=== PATIENT | male | born 1935 | race Caucasian/White ===

== ENCOUNTER 2016-05-07 22:51 | Inpatient (IN) | payer OTHER ==
[~2016-05-07] VITALS: Ht 177.8 cm; Wt 92.8 kg
[~2016-05-07 22:51] MED LIST: AMOX TR-K CLV1 EAC4 PO; ANALGESIC BALM28 GM TP; ATIVAN1 MG PO; ATORVASTATIN CA10 MG PO; AUGMENTIN875 MG PO; BLOOD PRESSURE MED; CELEXA20 MG PO; CHEST CONGESTI400 MG PO; CHOLESTEROL MED; CLONIDINE HCL0.1 MG PO; COLACE100 MG PO; DULCOLAX10 MG PR; DUONEB 2.5-0.5 M3 ML AEROSOL; ENDOCET 5-3251 EACH PO; FEOSOL325 MG PO; FLONASE16 G1 BOTH NARES; FLORASTOR250 MG PO; FOSAMAX70 MG PO; FUROSEMIDE40 MG PO; Feosol PO; Flonase BOTH NARES; Fosamax PO; HYDROCODON-ACE1 EAC7 PO; Humibid LA,Mucinex PO; LASIX20 MG PO; LOPRESSOR25 MG PO; LOSARTAN POTASS25 MG PO; LOSARTAN POTASS50 MG PO; LOVENOX40 MG/0.4 SC; Lopressor PO; METOPROLOL SUCC25 MG PO; MILK OF MAGN PO; MIRALAX17 GM PO; MUCINEX600 MG PO; MUCUS RELIEF400 MG PO; NITROSTAT0.4 MG SL; PERCOCET 5/31 TABLET PO; PRESERVISIO1 CAPSULE PO; PRESERVISION S1 EACH PO; PRILOSEC20 MG PO; PRILOSEC40 MG PO; SIMVASTATIN20 MG PO; SIMVASTATIN5 MG PO; TERBINAFINE HC250 MG PO; TOPROL XL6.25 MG PO; TRAMADOL HCL50 MG PO; TYLENOL ARTHRI650 MG PO; Ultram PO; VITAMIN D32000 UNI1 PO; ZOCOR20 MG PO; [UNRECOGNIZED DRUG - OTHER] TP
[2016-05-08] VITALS (10 sets, daily range): BP systolic 119–144; BP diastolic 55–64
[2016-05-08 00:15] LABS: MCV 83.8 FL (86-99); MEAN PLAT.VOLUME 9.3 uM^3 (9.0-12.4); PLATELET COUNT 174 K/uL (156-360); RBC DIS.WIDTH-CV 17.1 % (11.8-14.6); RBC DIS.WIDTH-SD 50.2 % (39-53); RED BLOOD COUNT 3.46 M/uL (4.00-5.50); WHITE BLOOD COUNT 2.9 K/uL (4.1-10.2)
[2016-05-08 00:21] LABS: IMMATURE GRANULOCYTE (%) 0.3 % (0.0-0.7); IMMATURE GRANULOCYTE COUNT 0.1 K/uL; LYMPHOCYTE COUNT 0.4 K/uL (1.0-2.8); MONOCYTE (%) 11.4 % (3-12); MONOCYTE COUNT 0.3 K/uL (0-0.8); NEUTROPHIL (%) 74.5 % (45-76); NEUTROPHIL COUNT 2.2 K/uL (1.8-6.4)
[2016-05-08 00:26] LABS: CHLORIDE 103 mEq/L (99-109); SODIUM 138 mEq/L (136-147)
[2016-05-08 00:28] LABS: GLUCOSE 131 mg/dL (70-99)
[2016-05-08 00:29] LABS: ANION GAP 9 MEQ/L (2-14); INTER. NORMALIZED RATIO 1.1; PROTHROMBIN TIME 10.8 (9.2-11.2); PTT 26.1 (25-32)
[2016-05-08 00:30] LABS: TOTAL BILIRUBIN 0.4 mg/dL (0.0-1.0)
[2016-05-08 00:31] LABS: ALKALINE PHOSPHATASE 80 IU/L (3-129)
[2016-05-08 00:32] LABS: GFR ESTIMATE (CALCULATED) > 59 mL/min/
[2016-05-08 00:33] LABS: UREA NITROGEN (BUN) 21 mg/dL (9-23)
[2016-05-08 00:35] LABS: LIPASE 37 U/L (1.0-51.0)
[2016-05-08 00:36] LABS: TROP-I INTERPRETATION NEGATIVE; TROPONIN-I 0.01 ng/mL (0.0-0.30)
[2016-05-08] MEDS ORDERED: ASPERCREME1 EACH TP (01:32)
[2016-05-08] MEDS ORDERED: POTASSIUM CHLO10 ME3 PO (01:37)
[2016-05-08] MEDS ORDERED: TRAZODONE HCL50 MG PO (01:39)
[2016-05-08] MEDS ORDERED: VITAMIN D2000 UNIT PO (01:40)
[2016-05-08] MEDS ORDERED: TOPROL XL25 MG PO (01:41)
[2016-05-08] MEDS ORDERED: DULCOLAX10 MG PR (01:43)
[2016-05-08] MEDS ORDERED: FLEET MINERAL133 ML PR (01:46)
[2016-05-08 03:09] LABS: ADD MIUA? YES; BLOOD LARGE; COLOR RED ((YELLOW))
[2016-05-08 03:13] LABS: RED BLOOD CELLS TNTC /HPF (0-5); UCUL ADDED? YES
[2016-05-08 07:01] LABS: MCH 26.3 PG (29.0-34.0); MCHC 31.8 G/DL (30.0-36.0); MCV 82.8 FL (86-99); MEAN PLAT.VOLUME 9.2 uM^3 (9.0-12.4); PLATELET COUNT 155 K/uL (156-360); RBC DIS.WIDTH-CV 17.3 % (11.8-14.6); RBC DIS.WIDTH-SD 51.9 % (39-53); RED BLOOD COUNT 3.38 M/uL (4.00-5.50)
[2016-05-08 07:02] LABS: WHITE BLOOD COUNT 4.7 K/uL (4.1-10.2)
[2016-05-08 07:17] LABS: ANION GAP 6 MEQ/L (2-14); CHLORIDE 103 MEQ/L (99-109); GFR ESTIMATE (CALCULATED) > 59 mL/min/; GLUCOSE 139 mg/dL (70-99); POTASSIUM 4.4 MEQ/L (3.7-5.4); SAMPLE HEMOLYSIS CHECK 0; SAMPLE ICTERIC CHECK 0; SAMPLE LIPEMIA CHECK 0; SODIUM 137 MEQ/L (136-147); UREA NITROGEN (BUN) 21 mg/dL (9-23)
[2016-05-08 12:45] LABS: HEMATOCRIT 25.4 % (38.0-50.0); MCH 26.8 PG (29.0-34.0); MCHC 32.3 G/DL (30.0-36.0); MEAN PLAT.VOLUME 9.1 uM^3 (9.0-12.4); PLATELET COUNT 146 K/uL (156-360); RBC DIS.WIDTH-CV 17.3 % (11.8-14.6); RBC DIS.WIDTH-SD 51.9 % (39-53); RED BLOOD COUNT 3.06 M/uL (4.00-5.50); WHITE BLOOD COUNT 3.7 K/uL (4.1-10.2)
[2016-05-08 18:56] LABS: HEMATOCRIT 23.7 % (38.0-50.0); MCH 26.3 PG (29.0-34.0); MCHC 31.6 G/DL (30.0-36.0); MCV 83.2 FL (86-99); MEAN PLAT.VOLUME 9.4 uM^3 (9.0-12.4); PLATELET COUNT 155 K/uL (156-360); RBC DIS.WIDTH-CV 17.3 % (11.8-14.6); RBC DIS.WIDTH-SD 52.8 % (39-53); RED BLOOD COUNT 2.85 M/uL (4.00-5.50); WHITE BLOOD COUNT 3.6 K/uL (4.1-10.2)
[2016-05-08 19:22] LABS: EOSINOPHIL (%) 1.7 % (0-5); EOSINOPHIL COUNT 0.1 K/uL (0-0.3); LYMPHOCYTE COUNT 0.3 K/uL (1.0-2.8); MONOCYTE (%) 14.7 % (3-12); MONOCYTE COUNT 0.5 K/uL (0-0.8); NEUTROPHIL (%) 75.3 % (45-76); NEUTROPHIL COUNT 2.7 K/uL (1.8-6.4)
[2016-05-08 22:37] LABS: HEMATOCRIT 24.7 % (38.0-50.0); MCH 26.8 PG (29.0-34.0); MCHC 32.4 G/DL (30.0-36.0); MCV 82.6 FL (86-99); MEAN PLAT.VOLUME 8.6 uM^3 (9.0-12.4); PLATELET COUNT 124 K/uL (156-360); RBC DIS.WIDTH-CV 16.7 % (11.8-14.6); RBC DIS.WIDTH-SD 50.2 % (39-53); RED BLOOD COUNT 2.99 M/uL (4.00-5.50)
[2016-05-08 22:42] LABS: EOSINOPHIL (%) 2.3 % (0-5); EOSINOPHIL COUNT 0.1 K/uL (0-0.3); LYMPHOCYTE COUNT 0.4 K/uL (1.0-2.8); MONOCYTE (%) 11.3 % (3-12); MONOCYTE COUNT 0.3 K/uL (0-0.8); NEUTROPHIL (%) 73.4 % (45-76); NEUTROPHIL COUNT 2.2 K/uL (1.8-6.4)
[2016-05-09 00:25] VITALS: BP 127/65
[2016-05-09 05:15] LABS: HEMATOCRIT 24.5 % (38.0-50.0); MCH 26.8 PG (29.0-34.0); MCHC 32.2 G/DL (30.0-36.0); MCV 83.1 FL (86-99); MEAN PLAT.VOLUME 9.4 uM^3 (9.0-12.4); PLATELET COUNT 131 K/uL (156-360); RBC DIS.WIDTH-SD 51.3 % (39-53); RED BLOOD COUNT 2.95 M/uL (4.00-5.50); WHITE BLOOD COUNT 3.1 K/uL (4.1-10.2)
[2016-05-09 08:21] VITALS: BP 122/92
[2016-05-09 12:08] VITALS: BP 139/63
[2016-05-09 14:59] VITALS: BP 150/67
[2016-05-09 15:25] VITALS: BP 160/70
[2016-05-09 17:30] VITALS: BP 182/78
[2016-05-09 18:33] LABS: HEMATOCRIT 25.4 % (38.0-50.0); MCHC 32.3 G/DL (30.0-36.0); MCV 83.6 FL (86-99); MEAN PLAT.VOLUME 9.1 uM^3 (9.0-12.4); PLATELET COUNT 111 K/uL (156-360); RBC DIS.WIDTH-CV 16.6 % (11.8-14.6); RBC DIS.WIDTH-SD 49.9 % (39-53); RED BLOOD COUNT 3.04 M/uL (4.00-5.50); WHITE BLOOD COUNT 2.1 K/uL (4.1-10.2)
[2016-05-10] VITALS (9 sets, daily range): BP systolic 139–187; BP diastolic 50–79
[2016-05-10 06:14] LABS: HEMATOCRIT 27.7 % (38.0-50.0); MCH 27.4 PG (29.0-34.0); MCHC 32.9 G/DL (30.0-36.0); MCV 83.4 FL (86-99); MEAN PLAT.VOLUME 9.7 uM^3 (9.0-12.4); PLATELET COUNT 113 K/uL (156-360); RBC DIS.WIDTH-CV 16.2 % (11.8-14.6); RBC DIS.WIDTH-SD 49.4 % (39-53); RED BLOOD COUNT 3.32 M/uL (4.00-5.50); WHITE BLOOD COUNT 2.3 K/uL (4.1-10.2)
[2016-05-10 06:16] LABS: HEMATOCRIT 27.9 % (38.0-50.0); MCH 27.1 PG (29.0-34.0); MCHC 32.3 G/DL (30.0-36.0); MEAN PLAT.VOLUME 9.5 uM^3 (9.0-12.4); PLATELET COUNT 116 K/uL (156-360); RBC DIS.WIDTH-CV 16.3 % (11.8-14.6); RBC DIS.WIDTH-SD 49.3 % (39-53); RED BLOOD COUNT 3.32 M/uL (4.00-5.50); WHITE BLOOD COUNT 2.3 K/uL (4.1-10.2)
[2016-05-10 07:29] LABS: ANION GAP 8 MEQ/L (2-14); CHLORIDE 109 MEQ/L (99-109); GFR ESTIMATE (CALCULATED) > 59 mL/min/; POTASSIUM 4.2 MEQ/L (3.7-5.4); SAMPLE HEMOLYSIS CHECK 0; SAMPLE ICTERIC CHECK 0; SAMPLE LIPEMIA CHECK 0; SODIUM 142 MEQ/L (136-147); UREA NITROGEN (BUN) 14 mg/dL (9-23)
[2016-05-10 07:30] LABS: GLUCOSE 101 mg/dL (70-99)
[2016-05-10 11:17] LABS: METH RESISTANT S AUREUS PCR POSITIVE (NEGATIVE)
[2016-05-10 11:21] LABS: PROBE CHECK PASS
[2016-05-10 20:00] LABS: HEMATOCRIT 25.3 % (38.0-50.0); MCH 27.3 PG (29.0-34.0); MCHC 32.4 G/DL (30.0-36.0); MCV 84.3 FL (86-99); MEAN PLAT.VOLUME 9.6 uM^3 (9.0-12.4); PLATELET COUNT 122 K/uL (156-360); RBC DIS.WIDTH-CV 16.6 % (11.8-14.6); RBC DIS.WIDTH-SD 50.7 % (39-53)
[2016-05-10 20:01] LABS: WHITE BLOOD COUNT 1.6 K/uL (4.1-10.2)
[2016-05-11 00:26] VITALS: BP 116/78
[2016-05-11 00:30] VITALS: BP 142/76; BP 242/76
[2016-05-11 05:05] LABS: MCH 26.9 PG (29.0-34.0); MCHC 32.2 G/DL (30.0-36.0); MCV 83.9 FL (86-99); MEAN PLAT.VOLUME 8.9 uM^3 (9.0-12.4); PLATELET COUNT 147 K/uL (156-360); RBC DIS.WIDTH-CV 16.2 % (11.8-14.6); RBC DIS.WIDTH-SD 47.6 % (39-53); RED BLOOD COUNT 3.23 M/uL (4.00-5.50)
[2016-05-11 05:06] LABS: WHITE BLOOD COUNT 1.6 K/uL (4.1-10.2)
[2016-05-11 07:59] VITALS: BP 142/68
[2016-05-11 16:09] VITALS: BP 153/68
[2016-05-11 19:33] LABS: HEMATOCRIT 26.5 % (38.0-50.0); MCH 27.4 PG (29.0-34.0); MCHC 32.5 G/DL (30.0-36.0); MCV 84.4 FL (86-99); MEAN PLAT.VOLUME 8.7 uM^3 (9.0-12.4); PLATELET COUNT 112 K/uL (156-360); RBC DIS.WIDTH-CV 16.5 % (11.8-14.6); RED BLOOD COUNT 3.14 M/uL (4.00-5.50); WHITE BLOOD COUNT 1.5 K/uL (4.1-10.2)
[2016-05-12 00:21] VITALS: BP 180/70
[2016-05-12 06:28] VITALS: BP 199/86
[2016-05-12 06:33] LABS: HEMATOCRIT 27.7 % (38.0-50.0); MCH 27.2 PG (29.0-34.0); MCHC 32.5 G/DL (30.0-36.0); MCV 83.7 FL (86-99); MEAN PLAT.VOLUME 9.4 uM^3 (9.0-12.4); PLATELET COUNT 124 K/uL (156-360); RBC DIS.WIDTH-CV 16.6 % (11.8-14.6); RBC DIS.WIDTH-SD 50.5 % (39-53); RED BLOOD COUNT 3.31 M/uL (4.00-5.50)
[2016-05-12 06:35] LABS: WHITE BLOOD COUNT 1.6 K/uL (4.1-10.2)
[2016-05-12 07:13] LABS: EOSINOPHIL (%) 1.9 % (0-5); LYMPHOCYTE COUNT 0.2 K/uL (1.0-2.8); MONOCYTE (%) 14.6 % (3-12); MONOCYTE COUNT 0.2 K/uL (0-0.8); NEUTROPHIL (%) 68.2 % (45-76); NEUTROPHIL COUNT 1.1 K/uL (1.8-6.4); PLAT.SUFFICIENCY DECREASED; USER ID SDF
[2016-05-12 07:46] VITALS: BP 198/70
[2016-05-12 16:48] VITALS: BP 172/64
[2016-05-12 19:18] LABS: HEMATOCRIT 29.3 % (38.0-50.0); MCH 27.4 PG (29.0-34.0); MCHC 32.8 G/DL (30.0-36.0); MCV 83.5 FL (86-99); MEAN PLAT.VOLUME 8.8 uM^3 (9.0-12.4); PLATELET COUNT 125 K/uL (156-360); RBC DIS.WIDTH-CV 16.6 % (11.8-14.6); RBC DIS.WIDTH-SD 50.1 % (39-53); RED BLOOD COUNT 3.51 M/uL (4.00-5.50)
[2016-05-12 19:19] LABS: WHITE BLOOD COUNT 1.5 K/uL (4.1-10.2)
[2016-05-13 00:09] VITALS: BP 146/65
[2016-05-13 06:27] LABS: EOSINOPHIL (%) 0.6 % (0-5); HEMATOCRIT 28.7 % (38.0-50.0); IMMATURE GRANULOCYTE (%) 0.3 % (0.0-0.7); LYMPHOCYTE COUNT 0.2 K/uL (1.0-2.8); MCH 27.2 PG (29.0-34.0); MCHC 32.4 G/DL (30.0-36.0); MCV 83.9 FL (86-99); MEAN PLAT.VOLUME 9.1 uM^3 (9.0-12.4); MONOCYTE (%) 8.9 % (3-12); MONOCYTE COUNT 0.6 K/uL (0-0.8); NEUTROPHIL (%) 86.5 % (45-76); NEUTROPHIL COUNT 5.6 K/uL (1.8-6.4); PLATELET COUNT 120 K/uL (156-360); RBC DIS.WIDTH-CV 16.7 % (11.8-14.6); RBC DIS.WIDTH-SD 50.4 % (39-53); RED BLOOD COUNT 3.42 M/uL (4.00-5.50)
[2016-05-13 06:28] LABS: WHITE BLOOD COUNT 6.4 K/uL (4.1-10.2)
[2016-05-13 08:00] VITALS: BP 145/75
[2016-05-13 10:42] LABS: ANION GAP 8 MEQ/L (2-14); CHLORIDE 110 MEQ/L (99-109); GFR ESTIMATE (CALCULATED) > 59 mL/min/; GLUCOSE 93 mg/dL (70-99); SAMPLE HEMOLYSIS CHECK 0; SAMPLE ICTERIC CHECK 0; SAMPLE LIPEMIA CHECK 0; SODIUM 143 MEQ/L (136-147); UREA NITROGEN (BUN) 6 mg/dL (9-23)
[2016-05-13 10:45] LABS: POTASSIUM 3.1 MEQ/L (3.7-5.4)
[2016-05-13 19:23] LABS: HEMATOCRIT 30.6 % (38.0-50.0); MCH 27.1 PG (29.0-34.0); MCHC 32.4 G/DL (30.0-36.0); MCV 83.8 FL (86-99); MEAN PLAT.VOLUME 9.1 uM^3 (9.0-12.4); PLATELET COUNT 135 K/uL (156-360); RBC DIS.WIDTH-CV 17.1 % (11.8-14.6); RBC DIS.WIDTH-SD 51.3 % (39-53); RED BLOOD COUNT 3.65 M/uL (4.00-5.50); WHITE BLOOD COUNT 7.5 K/uL (4.1-10.2)
[2016-05-13 23:50] VITALS: BP 150/78
[2016-05-14 06:24] LABS: HEMATOCRIT 32.1 % (38.0-50.0); MCH 26.8 PG (29.0-34.0); MCHC 31.8 G/DL (30.0-36.0); MCV 84.5 FL (86-99); PLATELET COUNT 135 K/uL (156-360); RBC DIS.WIDTH-CV 17.5 % (11.8-14.6); WHITE BLOOD COUNT 7.8 K/uL (4.1-10.2)
[2016-05-14 07:01] LABS: ANION GAP 7 MEQ/L (2-14); CHLORIDE 111 MEQ/L (99-109); GFR ESTIMATE (CALCULATED) > 59 mL/min/; GLUCOSE 103 mg/dL (70-99); POTASSIUM 3.6 MEQ/L (3.7-5.4); SAMPLE HEMOLYSIS CHECK 0; SAMPLE ICTERIC CHECK 0; SAMPLE LIPEMIA CHECK 0; SODIUM 144 MEQ/L (136-147); UREA NITROGEN (BUN) 5 mg/dL (9-23)
[2016-05-14 08:30] VITALS: BP 150/70
[2016-05-14 16:30] VITALS: BP 169/50
[2016-05-14 18:17] LABS: HEMATOCRIT 31.9 % (38.0-50.0); MCH 27.1 PG (29.0-34.0); MCHC 31.7 G/DL (30.0-36.0); MCV 85.5 FL (86-99); MEAN PLAT.VOLUME 9.2 uM^3 (9.0-12.4); PLATELET COUNT 141 K/uL (156-360); RBC DIS.WIDTH-CV 17.3 % (11.8-14.6); RBC DIS.WIDTH-SD 52.7 % (39-53); RED BLOOD COUNT 3.73 M/uL (4.00-5.50); WHITE BLOOD COUNT 6.8 K/uL (4.1-10.2)
[2016-05-15 00:02] VITALS: BP 176/78
[2016-05-15 07:37] VITALS: BP 194/83
[2016-05-15] MEDS ORDERED: METOPROLOL TART50 MG PO (08:19)
== END 2016-05-15 12:19 | DRG 377 ==
LOC: EME → EDBD 22:51 → EDOF 05-08 01:48 → 3EAST 05-08 01:48
PROVIDERS: Anesthesiology; Emergency Medicine; Internal Medicine; Specialist
PROC: 30233N1 Transfusion of Nonautologous Red Blood Cells into Peripheral Vein, Percutaneous Approach (ICD-10-PCS; principal; 2016-05-08)
PROC: 3E1K78Z Irrigation of Genitourinary Tract using Irrigating Substance, Via Natural or Artificial Opening (ICD-10-PCS; principal; 2016-05-08)
PROC: 0T9B70Z Drainage of Bladder with Drainage Device, Via Natural or Artificial Opening (ICD-10-PCS; principal; 2016-05-08)
PROC: 0DJ08ZZ Inspection of Upper Intestinal Tract, Via Natural or Artificial Opening Endoscopic (ICD-10-PCS; 2016-05-09)
PROC: 0DJD8ZZ Inspection of Lower Intestinal Tract, Via Natural or Artificial Opening Endoscopic (ICD-10-PCS; 2016-05-13)
PROC: 0DBL8ZX Excision of Transverse Colon, Via Natural or Artificial Opening Endoscopic, Diagnostic (ICD-10-PCS; 2016-05-13)
PROC: 0DBK8ZX Excision of Ascending Colon, Via Natural or Artificial Opening Endoscopic, Diagnostic (ICD-10-PCS; 2016-05-13)
PROC: 0DBM8ZX Excision of Descending Colon, Via Natural or Artificial Opening Endoscopic, Diagnostic (ICD-10-PCS; 2016-05-13)
DX: K62.5 Hemorrhage of anus and rectum (principal); N30.91 Cystitis, unspecified with hematuria; D61.811 Other drug-induced pancytopenia; T36.1X5A Adverse effect of cephalosporins and other beta-lactam antibiotics, initial encounter; D12.2 Benign neoplasm of ascending colon; D62 Acute posthemorrhagic anemia; N13.6 Pyonephrosis; B96.4 Proteus (mirabilis) (morganii) as the cause of diseases classified elsewhere; K29.60 Other gastritis without bleeding; K57.30 Diverticulosis of large intestine without perforation or abscess without bleeding; D12.4 Benign neoplasm of descending colon; D12.3 Benign neoplasm of transverse colon; K31.819 Angiodysplasia of stomach and duodenum without bleeding; K52.9 Noninfective gastroenteritis and colitis, unspecified; J90 Pleural effusion, not elsewhere classified; K62.89 Other specified diseases of anus and rectum; K64.2 Third degree hemorrhoids; I10 Essential (primary) hypertension; N40.1 Benign prostatic hyperplasia with lower urinary tract symptoms; R33.8 Other retention of urine; M80.00XA Age-related osteoporosis with current pathological fracture, unspecified site, initial encounter for fracture; W19.XXXA Unspecified fall, initial encounter; Y92.009 Unspecified place in unspecified non-institutional (private) residence as the place of occurrence of the external cause; F03.90 Unspecified dementia, unspecified severity, without behavioral disturbance, psychotic disturbance, mood disturbance, and anxiety; E78.5 Hyperlipidemia, unspecified; I25.10 Atherosclerotic heart disease of native coronary artery without angina pectoris; G89.29 Other chronic pain; M54.32 Sciatica, left side; K21.9 Gastro-esophageal reflux disease without esophagitis; J44.9 Chronic obstructive pulmonary disease, unspecified; G47.30 Sleep apnea, unspecified; K76.0 Fatty (change of) liver, not elsewhere classified; Z87.891 Personal history of nicotine dependence; I25.2 Old myocardial infarction; Z86.73 Personal history of transient ischemic attack (TIA), and cerebral infarction without residual deficits; J45.909 Unspecified asthma, uncomplicated; F41.9 Anxiety disorder, unspecified; I27.2 Other secondary pulmonary hypertension; D36.15 Benign neoplasm of peripheral nerves and autonomic nervous system of abdomen; E66.9 Obesity, unspecified; Z68.29 Body mass index [BMI] 29.0-29.9, adult; Z87.81 Personal history of (healed) traumatic fracture; Z88.1 Allergy status to other antibiotic agents
CPT/HCPCS: 71010; 74177; 74250; 80048; 80053; 81003; 82085 90; 82272; 82550; 83605; 83690; 84484; 85025; 85025 91; 85027; 85610; 85651; 85730; 86850; 86900; 86901; 86920; 87040; 87077; 87086; 87177; 87186; 87493; 87506; 87641; 88305; 93005; 94760; 94799; 99202; 99281; 99285; B4087; C9113; J0692; J0696; J1170; J1447; J2060; J2250; J2270; J2405; J3010; J7030; J7050; P9016; S0028

== ENCOUNTER 2016-08-19 11:43 | Inpatient (IN) | payer OTHER ==
[~2016-08-19] VITALS: Ht 182.9 cm; Wt 92.0 kg
[~2016-08-19 11:43] MED LIST changes: +ASPERCREME1 EACH TP; +FLEET MINERAL133 ML PR; +METOPROLOL TART50 MG PO; +POTASSIUM CHLO10 ME3 PO; +TOPROL XL25 MG PO; +TRAZODONE HCL50 MG PO; +VITAMIN D2000 UNIT PO
[2016-08-19 13:31] LABS: EOSINOPHIL COUNT 0.1 K/uL (0-0.3); IMMATURE GRANULOCYTE (%) 0.4 % (0.0-0.7); INSTRUMENT ABS NEUTROPHIL CT 3.6 K/uL; LYMPHOCYTE COUNT 0.3 K/uL (1.0-2.8); MCH 28.1 PG (29.0-34.0); MCHC 31.5 G/DL (30.0-36.0); MCV 89.4 FL (86-99); MEAN PLAT.VOLUME 10.1 uM^3 (9.0-12.4); MONOCYTE (%) 12.1 % (3-12); MONOCYTE COUNT 0.6 K/uL (0-0.8); NEUTROPHIL COUNT 3.6 K/uL (1.8-6.4); PLATELET COUNT 229 K/uL (156-360); RED BLOOD COUNT 3.02 M/uL (4.00-5.50)
[2016-08-19 13:35] LABS: WHITE BLOOD COUNT 4.6 K/uL (4.1-10.2)
[2016-08-19 13:41] LABS: CHLORIDE 107 mEq/L (99-109); POTASSIUM 4.9 mEq/L (3.7-5.4); SODIUM 141 mEq/L (136-147)
[2016-08-19 13:43] LABS: GLUCOSE 112 mg/dL (70-99)
[2016-08-19 13:44] LABS: ANION GAP 10 MEQ/L (2-14)
[2016-08-19 13:47] LABS: GFR ESTIMATE (CALCULATED) 39 mL/min/
[2016-08-19 13:48] LABS: UREA NITROGEN (BUN) 62 mg/dL (9-23)
[2016-08-19 13:54] LABS: TROP-I INTERPRETATION POSITIVE; TROPONIN-I 1.22 ng/mL (0.0-0.30)
[2016-08-19 14:03] LABS: ADD MIUA? YES; BILIRUBIN NEGATIVE; BLOOD LARGE; COLOR YELLOW ((YELLOW)); GLUCOSE (STRIP) NEGATIVE; KETONES NEGATIVE; LEUKOCYTES LARGE; NITRITE NEGATIVE; PROTEIN (STRIP) 100; SPECIFIC GRAVITY 1.017 (1.000-1.030); UROBILINOGEN 0.2 MG/DL (0.2-1.0)
[2016-08-19] MEDS ORDERED: ASPERCREME76.5 GM TP ×2 (14:26→14:52)
[2016-08-19] MEDS ORDERED: LASIX40 MG PO (14:28)
[2016-08-19] MEDS ORDERED: NEURONTIN100 MG PO (14:29)
[2016-08-19] MEDS ORDERED: COZAAR100 MG PO (14:30)
[2016-08-19] MEDS ORDERED: KLOR-CON M2020 MEQ PO (14:32)
[2016-08-19 14:34] LABS: BACTERIA RARE /HPF; EPITHELIAL CELLS NONE SEEN /HPF; MUCUS TRACE /LPF; RED BLOOD CELLS TNTC /HPF (0-5); UCUL ADDED? NO; WHITE BLOOD CELLS 40-50 /HPF (0-5)
[2016-08-19] MEDS ORDERED: LOPRESSOR50 MG PO (14:38)
[2016-08-19] MEDS ORDERED: PROBIOTIC250 MG PO (14:39)
[2016-08-19] MEDS ORDERED: ACETAMINOPHEN325 M1 PO (14:47)
[2016-08-19 17:01] LABS: D-DIMER ELISA 2.28 mg/L FEU (< 0.57); INTER. NORMALIZED RATIO 1.1; PROTHROMBIN TIME 11.4 (9.2-11.2); PTT 28.4 (25-32)
[2016-08-19 20:27] VITALS: BP 142/63
[2016-08-19 20:29] VITALS: BP 142/63
[2016-08-19 20:50] VITALS: BP 142/63
[2016-08-19 21:24] LABS: TROP-I INTERPRETATION POSITIVE; TROPONIN-I 1.15 ng/mL (0.0-0.30)
[2016-08-19 23:18] VITALS: BP 126/60
[2016-08-20 03:49] VITALS: BP 133/63
[2016-08-20 05:12] LABS: TROP-I INTERPRETATION POSITIVE; TROPONIN-I 0.93 ng/mL (0.0-0.30)
[2016-08-20 05:34] LABS: HEMATOCRIT 23.7 % (38.0-50.0); MCH 28.2 PG (29.0-34.0); MCHC 31.2 G/DL (30.0-36.0); MCV 90.5 FL (86-99); MEAN PLAT.VOLUME 9.9 uM^3 (9.0-12.4); PLATELET COUNT 184 K/uL (156-360); RBC DIS.WIDTH-CV 15.9 % (11.8-14.6); RED BLOOD COUNT 2.62 M/uL (4.00-5.50); WHITE BLOOD COUNT 3.5 K/uL (4.1-10.2)
[2016-08-20 05:40] LABS: ANION GAP 8 MEQ/L (2-14); CHLORIDE 109 MEQ/L (99-109); GFR ESTIMATE (CALCULATED) 56 mL/min/; POTASSIUM 4.8 MEQ/L (3.7-5.4); SAMPLE HEMOLYSIS CHECK 0; SAMPLE ICTERIC CHECK 0; SAMPLE LIPEMIA CHECK 0; SODIUM 144 MEQ/L (136-147); UREA NITROGEN (BUN) 56 mg/dL (9-23)
[2016-08-20 05:43] LABS: GLUCOSE 82 mg/dL (70-99)
[2016-08-20 06:51] LABS: ABS NEUTROPHIL COUNT 2.9; BASOPHILS 0.9 %; EOSINOPHIL ABS CT 0.1; EOSINOPHILS 2.6 % (0-5.0); INSTRUMENT ABS NEUTROPHIL CT 2.6 K/uL; LYMPHOCYTES 7.8 % (15.0-45.0); SEG.NEUTROPHILS 82.6 % (46.0-76.0)
[2016-08-20 07:25] VITALS: BP 133/63
[2016-08-20 07:42] LABS: METH RESISTANT S AUREUS PCR POSITIVE (NEGATIVE)
[2016-08-20 07:44] LABS: PROBE CHECK PASS
[2016-08-20 11:21] VITALS: BP 127/65
[2016-08-20 13:22] LABS: TROP-I INTERPRETATION POSITIVE; TROPONIN-I 0.83 ng/mL (0.0-0.30)
[2016-08-20 16:05] VITALS: BP 119/54
[2016-08-20 19:21] VITALS: BP 122/44
[2016-08-20 23:25] VITALS: BP 122/58
[2016-08-21] VITALS (13 sets, daily range): BP systolic 131–175; BP diastolic 48–77
[2016-08-21 06:59] LABS: EOSINOPHIL (%) 3.9 % (0-5); EOSINOPHIL COUNT 0.1 K/uL (0-0.3); HEMATOCRIT 22.1 % (38.0-50.0); IMMATURE GRANULOCYTE (%) 0.3 % (0.0-0.7); INSTRUMENT ABS NEUTROPHIL CT 2.5 K/uL; LYMPHOCYTE COUNT 0.3 K/uL (1.0-2.8); MCH 27.7 PG (29.0-34.0); MCHC 30.3 G/DL (30.0-36.0); MCV 91.3 FL (86-99); MEAN PLAT.VOLUME 9.5 uM^3 (9.0-12.4); MONOCYTE (%) 11.8 % (3-12); MONOCYTE COUNT 0.4 K/uL (0-0.8); NEUTROPHIL COUNT 2.5 K/uL (1.8-6.4); PLATELET COUNT 176 K/uL (156-360); RBC DIS.WIDTH-CV 15.7 % (11.8-14.6); RBC DIS.WIDTH-SD 52.5 % (39-53); RED BLOOD COUNT 2.42 M/uL (4.00-5.50); WHITE BLOOD COUNT 3.3 K/uL (4.1-10.2)
[2016-08-21 07:08] LABS: ANION GAP 7 MEQ/L (2-14); CHLORIDE 109 MEQ/L (99-109); GFR ESTIMATE (CALCULATED) > 59 mL/min/; GLUCOSE 84 mg/dL (70-99); POTASSIUM 3.9 MEQ/L (3.7-5.4); SAMPLE HEMOLYSIS CHECK 0; SAMPLE ICTERIC CHECK 0; SAMPLE LIPEMIA CHECK 0; SODIUM 142 MEQ/L (136-147); UREA NITROGEN (BUN) 34 mg/dL (9-23)
[2016-08-21 16:27] LABS: HEMATOCRIT 27.9 % (38.0-50.0); MCV 89.4 FL (86-99)
[2016-08-22] VITALS (7 sets, daily range): BP systolic 118–158; BP diastolic 61–76
[2016-08-22 07:19] LABS: EOSINOPHIL (%) 3.1 % (0-5); EOSINOPHIL COUNT 0.1 K/uL (0-0.3); HEMATOCRIT 28.9 % (38.0-50.0); IMMATURE GRANULOCYTE (%) 0.3 % (0.0-0.7); INSTRUMENT ABS NEUTROPHIL CT 2.2 K/uL; LYMPHOCYTE COUNT 0.3 K/uL (1.0-2.8); MCH 27.7 PG (29.0-34.0); MCHC 31.5 G/DL (30.0-36.0); MCV 88.1 FL (86-99); MONOCYTE COUNT 0.4 K/uL (0-0.8); NEUTROPHIL (%) 75.7 % (45-76); NEUTROPHIL COUNT 2.2 K/uL (1.8-6.4); PLATELET COUNT 202 K/uL (156-360); RBC DIS.WIDTH-CV 15.7 % (11.8-14.6); RBC DIS.WIDTH-SD 50.6 % (39-53); RED BLOOD COUNT 3.28 M/uL (4.00-5.50); WHITE BLOOD COUNT 2.9 K/uL (4.1-10.2)
[2016-08-22 07:35] LABS: ANION GAP 9 MEQ/L (2-14); CHLORIDE 111 MEQ/L (99-109); GFR ESTIMATE (CALCULATED) > 59 mL/min/; GLUCOSE 90 mg/dL (70-99); POTASSIUM 3.8 MEQ/L (3.7-5.4); SAMPLE HEMOLYSIS CHECK 0; SAMPLE ICTERIC CHECK 0; SAMPLE LIPEMIA CHECK 0; SODIUM 143 MEQ/L (136-147); UREA NITROGEN (BUN) 24 mg/dL (9-23)
[2016-08-23 03:39] VITALS: BP 150/65
[2016-08-23 08:57] VITALS: BP 154/86
[2016-08-23 16:47] VITALS: BP 169/70
[2016-08-23 19:46] VITALS: BP 181/75
[2016-08-23 23:41] VITALS: BP 137/61
[2016-08-24 04:01] VITALS: BP 161/72
[2016-08-24 07:57] VITALS: BP 177/74
[2016-08-24 11:19] VITALS: BP 126/62
[2016-08-24 16:29] VITALS: BP 167/77
[2016-08-25 00:03] VITALS: BP 156/69
[2016-08-25 08:34] VITALS: BP 148/62
[2016-08-25 16:00] VITALS: BP 168/64
[2016-08-25] MEDS ORDERED: AMLODIPINE BESY10 MG PO (18:48)
[2016-08-25] MEDS ORDERED: LOPRESSOR25 MG PO (18:48)
[2016-08-25] MEDS ORDERED: ASPIR-LOW81 MG PO (18:50)
[2016-08-25] MEDS ORDERED: FLECTOR 1.3%1 PATC1 TD (18:51)
[2016-08-25 19:14] VITALS: BP 157/69
[2016-08-25 23:44] VITALS: BP 164/68
[2016-08-26 07:20] VITALS: BP 166/72
[2016-08-26 15:00] VITALS: BP 164/70
== END 2016-08-26 18:18 | DRG 280 ==
LOC: EME → EDBD 11:43 → EME 11:43 → EDOF 16:00 → 4EAST 16:00 → 3EAST 08-23 14:34
PROVIDERS: Emergency Medicine; Internal Medicine
PROC: 30233N1 Transfusion of Nonautologous Red Blood Cells into Peripheral Vein, Percutaneous Approach (ICD-10-PCS; principal; 2016-08-21)
DX: I21.4 Non-ST elevation (NSTEMI) myocardial infarction (principal); F02.81 Dementia in other diseases classified elsewhere, unspecified severity, with behavioral disturbance; N17.9 Acute kidney failure, unspecified; J18.9 Pneumonia, unspecified organism; N39.0 Urinary tract infection, site not specified; Z79.82 Long term (current) use of aspirin; E86.0 Dehydration; I10 Essential (primary) hypertension; E78.5 Hyperlipidemia, unspecified; I25.10 Atherosclerotic heart disease of native coronary artery without angina pectoris; J44.9 Chronic obstructive pulmonary disease, unspecified; F03.90 Unspecified dementia, unspecified severity, without behavioral disturbance, psychotic disturbance, mood disturbance, and anxiety; D64.9 Anemia, unspecified; M25.561 Pain in right knee; R41.0 Disorientation, unspecified; R31.0 Gross hematuria; N28.1 Cyst of kidney, acquired; R58 Hemorrhage, not elsewhere classified; R00.1 Bradycardia, unspecified; I99.8 Other disorder of circulatory system; Z77.090 Contact with and (suspected) exposure to asbestos; S22.9 Fracture of bony thorax, part unspecified
CPT/HCPCS: 70450; 71010; 73560; 73590; 78580; 80048; 80048 91; 80069; 81003; 83880; 83880 GA; 84484; 85014; 85018; 85025; 85025 91; 85379; 85610; 85730; 86850; 86900; 86901; 86920; 87040; 87641; 93005; 94799; 99202; 99281; 99285; A9540; J1650; J2270; J2543; J3370; J7030; P9016; P9040